=== PATIENT | female | born 1960 | race Caucasian/White ===

== ENCOUNTER 2020-06-05 15:00 | Outpatient (CLI) | payer MEDICAID ==
[2020-06-05] MEDS ORDERED: ATOR20TA66 PO (15:58)
[2020-06-05] MEDS ORDERED: INSU100V11 SQ (15:58)
[2020-06-05] MEDS ORDERED: INSU100I31 SQ (15:58)
[2020-06-05] MEDS ORDERED: ALBU8.5H8 IH (15:58)
[2020-06-05] MEDS ORDERED: LISI-604 PO (15:59)
[2020-06-05 16:27] LABS: BASOPHILS % (AUTO) 0.3 % (0-1); EOSINOPHILS # (AUTO) 0.1 X10'3 (0-0.9); EOSINOPHILS % (AUTO) 0.8 % (0-6); LYMPHOCYTES # (AUTO) 3.2 X10'3 (1.1-4.8); LYMPHOCYTES % (AUTO) 30.7 % (21-51); MEAN CORPUSCULAR HEMOGLOBIN 28.7 PG (27.0-31.0); MEAN CORPUSCULAR HGB CONC 33.8 g/dL (33.0-36.5); MEAN CORPUSCULAR VOLUME 85.1 FL (78-98); MEAN PLATELET VOLUME 8.9 FL (7.4-10.4); MONOCYTES # (AUTO) 0.7 X10'3 (0-0.9); MONOCYTES % (AUTO) 6.4 % (2-12); NEUTROPHILS # (AUTO) 6.5 X10'3 (1.8-7.7); NEUTROPHILS % (AUTO) 61.8 % (42-75); PRE OP HEMATOCRIT 49.3 % (35.0-45.0); PRE OP HEMOGLOBIN 16.7 g/dL (12.0-16.0); PRE OP PLATELET COUNT 297 X10'3 (140-440); RED BLOOD COUNT 5.79 X10'6 (4.20-5.60); RED CELL DISTRIBUTION WIDTH 14.1 % (11.5-14.5)
[2020-06-05 16:35] LABS: ALBUMIN 3.4 G/DL (3.4-5.0); ALBUMIN/GLOBULIN RATIO 0.9 (1.1-1.5); ALKALINE PHOSPHATASE 175 IU/L (46-116); BLOOD UREA NITROGEN 19 MG/DL (7-18); BUN/CREATININE RATIO 19.2 (6.6-38.0); CALCIUM 9.7 MG/DL (8.5-10.1); CHLORIDE 100 MMOL/L (99-107); CREATININE 0.99 MG/DL (0.40-0.90); PRE OP ALT 35 U/L (30-65); PRE OP ANION GAP 8 (8-16); PRE OP AST 12 U/L (10-37); PRE OP BILIRUB, TOTAL 0.2 MG/DL (0.0-1.0); PRE OP POTASSIUM 4.6 MMOL/L (3.4-5.1); PRE OP SODIUM 136 MMOL/L (135-145); TOTAL CARBON DIOXIDE 27.6 MMOL/L (24-32); TOTAL PROTEIN 7.4 G/DL (6.4-8.2); eGFR 57 ML/MIN
[2020-06-05 16:39] LABS: PRE OP GLUCOSE 502 MG/DL (70-104)
== END 2020-06-05 23:59 | disposition home or self-care (01) ==
LOC: PRE-OP 15:00 → EDSTATUS 06-12 09:15
PROVIDERS: ATTEND Surgery
DX: Z01.812 Encounter for preprocedural laboratory examination (principal); Z20.828 Contact with and (suspected) exposure to other viral communicable diseases
CPT/HCPCS: 36415; 80053; 85025; 87635; 93005

== ENCOUNTER 2020-10-09 05:06 | Observation (INO) | payer MEDICAID ==
[2020-10-02 15:31] LABS: BASOPHILS # (AUTO) 0.1 X10'3 (0-0.2); BASOPHILS % (AUTO) 0.8 % (0-1); EOSINOPHILS # (AUTO) 0.1 X10'3 (0-0.9); EOSINOPHILS % (AUTO) 0.9 % (0-6); LYMPHOCYTES # (AUTO) 3.2 X10'3 (1.1-4.8); LYMPHOCYTES % (AUTO) 29.1 % (21-51); MEAN CORPUSCULAR HEMOGLOBIN 28.7 PG (27.0-31.0); MEAN CORPUSCULAR HGB CONC 33.8 g/dL (33.0-36.5); MEAN CORPUSCULAR VOLUME 84.9 FL (78-98); MEAN PLATELET VOLUME 8.7 FL (7.4-10.4); MONOCYTES # (AUTO) 0.7 X10'3 (0-0.9); MONOCYTES % (AUTO) 6.4 % (2-12); NEUTROPHILS # (AUTO) 6.8 X10'3 (1.8-7.7); NEUTROPHILS % (AUTO) 62.8 % (42-75); PRE OP HEMATOCRIT 49.2 % (35.0-45.0); PRE OP HEMOGLOBIN 16.6 g/dL (12.0-16.0); PRE OP PLATELET COUNT 317 X10'3 (140-440); RED CELL DISTRIBUTION WIDTH 14.7 % (11.5-14.5)
[2020-10-02 15:45] LABS: ALBUMIN 3.4 G/DL (3.4-5.0); ALBUMIN/GLOBULIN RATIO 0.9 (1.1-1.5); ALKALINE PHOSPHATASE 154 IU/L (46-116); BLOOD UREA NITROGEN 26 MG/DL (7-18); BUN/CREATININE RATIO 30.6 (6.6-38.0); CALCIUM 9.7 MG/DL (8.5-10.1); CHLORIDE 105 MMOL/L (99-107); CREATININE 0.85 MG/DL (0.40-0.90); PRE OP ALT 39 U/L (30-65); PRE OP ANION GAP 9 (8-16); PRE OP AST 18 U/L (10-37); PRE OP BILIRUB, TOTAL 0.1 MG/DL (0.0-1.0); PRE OP POTASSIUM 4.5 MMOL/L (3.4-5.1); PRE OP SODIUM 140 MMOL/L (135-145); TOTAL CARBON DIOXIDE 26.1 MMOL/L (24-32); TOTAL PROTEIN 7.4 G/DL (6.4-8.2); eGFR 68 ML/MIN
[2020-10-02 15:55] LABS: PRE OP GLUCOSE 283 MG/DL (70-104)
[2020-10-02 16:08] LABS: HEMOGLOBIN A1C 10.6 % (4.5-6.2)
[2020-10-09] VITALS (18 sets, daily range): BP systolic 133–181; BP diastolic 55–98
[~2020-10-09] VITALS: Ht 157.5 cm; Wt 115.4 kg
[~2020-10-09 05:06] MED LIST: ALBU8.5H8 IH; INSU100I31 SQ; INSU100V11 SQ; LISI-790 PO; ringers solution, lacted 1,000 ML IV SCH
[2020-10-09] MEDS ORDERED: clindamycin-Cleocin 900mg/D5W 50 ML IV ONE (05:30)
[2020-10-09] MEDS ORDERED: albuterol 2.5 MG/3 ML nebule NEB ONE (05:30)
[2020-10-09] MEDS ORDERED: famotidine 20mg tablet PO ONE (05:30)
[2020-10-09] MEDS ORDERED: LIDOcaine 1% (10mg/ml) 2ml vial ONE (06:05)
[2020-10-09] MEDS ORDERED: LIDOcaine 1% 30ml preserv. free vial ONE (06:49)
[2020-10-09] MEDS ORDERED: BUPIVAcaine/PF 2.5mg/ml (0.25%) 10ml vial ONE (06:50)
[2020-10-09] MEDS ORDERED: BUPIVAcaine/PF 2.5 mg/ml (0.25%) 30ml vial ONE (06:50)
[2020-10-09] MEDS ORDERED: BUPIVACAINE liposomal/PF 13.3 MG/ML vial IM ONE (06:51)
[2020-10-09] MEDS ORDERED: insulin regular, human 10 units/0.1 ml syringe IV ONE (07:00)
[2020-10-09] MEDS ORDERED: fentaNYL /PF 50mcg/ml 5ml ampule ONE (07:34)
[2020-10-09] MEDS ORDERED: midazolam 1 mg/ML 2ml injection ONE (07:34)
[2020-10-09] MEDS ORDERED: propofol inj 20 ML IV ONE (07:35)
[2020-10-09] MEDS ORDERED: LIDOcaine 2% (20mg/ml) 5ml vial ONE (07:35)
[2020-10-09] MEDS ORDERED: ondansetron/PF 4mg/2ml inj ONE (07:57)
[2020-10-09] MEDS ORDERED: dexamethasone sod phosphate 4mg/ml inj. ONE (07:57)
[2020-10-09] MEDS ORDERED: meperidine/PF 25mg/ml syringe IV PRN ×3 (09:20)
[2020-10-09] MEDS ORDERED: morphine 4 MG/ML inj SYRINge IV PRN (09:20)
[2020-10-09] MEDS ORDERED: proCHLORperazine 10 MG/2 ml inj IV PRN (09:20)
[2020-10-09] MEDS ORDERED: ondansetron/PF 4mg/2ml inj IV PRN ×2 (09:20→11:05)
[2020-10-09] MEDS ORDERED: morphine 2 MG/ML inj. syringe IV PRN (09:20)
[2020-10-09] MEDS ORDERED: ringers solution, lacted 1,000 ML IV SCH (09:20)
[2020-10-09] MEDS ORDERED: meperidine/PF 25mg/ml syringe ONE (10:18)
[2020-10-09] MEDS ORDERED: dextrose 50%-water 50ml dispensing syringe IV PRN ×2 (11:05)
[2020-10-09] MEDS ORDERED: MESSAGE TO PHARMACY PO ONE (11:05)
[2020-10-09] MEDS ORDERED: oxyCODONE/APAP 5-325mg tablet PO PRN (11:05)
[2020-10-09] MEDS ORDERED: insulin Lispro (HumaLOG) vial - multi-dose SQ SCH (11:05)
[2020-10-09] MEDS ORDERED: dextrose ORAL solution 15 GM/59 ML bottle PO PRN ×2 (11:05)
[2020-10-09] MEDS ORDERED: glucagon, human recombinant 1mg kit SUBCUT PRN (11:05)
[2020-10-09] MEDS ORDERED: insulin regular, human 10 units/0.1 ml syringe SQ ONE (11:10)
[2020-10-09] MEDS ORDERED: albuterol 2.5 MG/3 ML nebule NEB PRN (11:15)
--- NOTE | 2020-10-09 11:48 | NUR ---
ADMITTED TO PACU FROM OR ACCOMPANIED BY ANESTHESIA. INTIAL PHYSICAL ASSESSMENT DONE AND RECORDED. REPORT RECEIVED FROM ANESTHESIA.
--- NOTE | 2020-10-09 11:53 | NUR ---
Patient in room [facility] 348B. I have received report from LORRAINE CHAVEZ and had the opportunity to ask questions and assume patient care.
--- NOTE | 2020-10-09 12:00 | NUR ---
PACU DISCHARGE CRITERIA MET, REPORT GIVEN TO FLOOR. DENIES PAIN OR DISCOMFORT, TRANSFERRED TO ROOM IN STABLE GOOD CONDITION. UNEVENTUL PACU STAY, GLUCOSE 260 REGULAR INSULIN 10 UNITS GIVEN PER ORDER, PAIN FREE DURING PACU STAY.
[2020-10-09] MEDS: oxyCODONE/APAP 10/325mg tablet PO PRN ×2 (15:44→19:59)
[2020-10-09] MEDS: Potassium Cl inj 20 MEQ in ringers solution, lacted 1,000 ML IV SCH ×2 (18:00→19:10)
--- NOTE | 2020-10-09 18:20 | NUR ---
Patient in room [facility] 348B. I have received report from LORRAINE Vega and had the opportunity to ask questions and assume patient care. Repositioned patient and released/reapplied abdominal binder.
--- NOTE | 2020-10-09 18:55 | NUR ---
unable to cover for blood sugar because insulin is not available in [facility]. Pharmacy notified. Awaiting medication
--- NOTE | 2020-10-09 19:03 | NUR ---
Problems reprioritized. Patient report given, questions answered & plan of care reviewed with LORRAINE WHITFIELD.
--- NOTE | 2020-10-09 19:05 | NUR ---
Patient refused insulin treatment for dinner.
[2020-10-09] MEDS: heparin, porcine 5000 units/ml vial SQ SCH (19:59)
[2020-10-09] MEDS ORDERED: insulin glargine (Lantus) pen - multi-dose SQ SCH (21:00)
[2020-10-10] VITALS: BP 115/66
[2020-10-10] MEDS: Potassium Cl inj 20 MEQ in ringers solution, lacted 1,000 ML IV SCH ×2 (02:13→11:20)
[2020-10-10 06:00] VITALS: BP 145/67
--- NOTE | 2020-10-10 06:30 | NUR ---
Patient in room [facility]. I have received report from Rosa PETERS and had the opportunity to ask questions and assume patient care.
--- NOTE | 2020-10-10 06:40 | NUR ---
Problems reprioritized. Patient report given, questions answered & plan of care reviewed with LORRAINE Bennett and LORRAINE Carr.
--- NOTE | 2020-10-10 06:53 | NUR ---
Patient in room [facility]. I have received report from Rosa PETERS and had the opportunity to ask questions and assume patient care.
[2020-10-10] MEDS: oxyCODONE/APAP 10/325mg tablet PO PRN (07:26)
[2020-10-10] MEDS: heparin, porcine 5000 units/ml vial SQ SCH (07:34)
[2020-10-10] MEDS ORDERED: lisinopril 5mg tablet PO SCH (08:00)
--- NOTE | 2020-10-10 10:09 | NUR ---
Patient refused breakfast tray.Educated the patient on the importance of an adequate nutritional intake. She still refused.
--- NOTE | 2020-10-10 10:45 | NUR ---
Pt ambulated stand by assist with a FWW 75 ft.
[2020-10-10 10:46] VITALS: BP 140/81
--- NOTE | 2020-10-10 11:00 | NUR ---
Topete was removed today at 1100. Immediately following removal the patient voided 200mls of urine.
--- NOTE | 2020-10-10 11:33 | NUR ---
called Dr Park and left a message regarding Pt's DC orders. Pt wants to be DC early because she has to go home all the way to [place] and worries about driving in the snow. Pt got her Topete DC'ed and had already urinated and had a small BM. Pt ambulated 75ft with FWW and a person stand by. Pt will needs pain meds and DC orders.
--- NOTE | 2020-10-10 13:44 | NUR ---
Patient was discharged at 1255. Iv removed and canula intact. She was educated on follow up instructions and diabetes. Patient had a band for belonging in the safe. She stated that she did not have anything in the safe, that she already retrieved her belongs. She was called about after discharge and she again stated that she had all of her belongings.
--- NOTE | 2020-10-11 14:46 | NUR ---
CASE MANAGEMENT DISCHARGE FOLLOW UP: Spoke with pt via telephone. Reports that she is doing well, ambulating often, states pain level is tolerable at 7/10 at surgical site with pain medication; denies CP, SOB, bleeding, fever, drainage, odor, redness, swelling. She states that she does have decreased appetite, was only able to eat one egg this morning but was unable to eat the toast, states that she is not worried about it. Verbalizes understanding of s/sx requiring further evaluation/emergent assistance. No new medications. Verbalizes compliance with MD discharge instructions, states will not lift anything over 10 lbs. States that her brother is helping her as needed. Verbalizes understanding of the importance in making/keeping follow-up appointments, will call to set up appointment with Dr Park tomorrow. States no further questions/concerns at this time.
== END 2020-10-10 12:50 | disposition home or self-care (01) ==
LOC: PAS 05:06 → SUR 3N 11:03
PROVIDERS: ADMIT Surgery; ATTEND Surgery
DX: K43.0 Incisional hernia with obstruction, without gangrene (principal); Z20.822 Contact with and (suspected) exposure to COVID-19; E11.65 Type 2 diabetes mellitus with hyperglycemia; I10 Essential (primary) hypertension; J45.909 Unspecified asthma, uncomplicated; E66.01 Morbid (severe) obesity due to excess calories; F17.210 Nicotine dependence, cigarettes, uncomplicated; Z98.1 Arthrodesis status; Z90.710 Acquired absence of both cervix and uterus; Z88.0 Allergy status to penicillin; Z68.42 Body mass index [BMI] 45.0-49.9, adult
CPT/HCPCS: 36415; 49655; 80053; 82948; 83036; 85025; 87635; 94640; 96361; 96372; 96374; 96375; C1713; C1758; C1781; C9290; G0378; J1100; J1815; J2001; J2175; J2250; J2405; J2704; J3010; J3480; J3490; J7120; S2900; A4215; A4618

== ENCOUNTER → 2021-04-26 | Outpatient (CLI) | payer MEDICAID ==
[~2021-04-26] MED LIST changes: +ALBU8.5H17 IH; -ALBU8.5H8 IH; +APIX5TAB3 PO; -ringers solution, lacted 1,000 ML IV SCH
[2021-04-26 10:09] LABS: BASOPHILS # (AUTO) 0.1 X10'3 (0-0.2); BASOPHILS % (AUTO) 0.7 % (0-1); EOSINOPHILS # (AUTO) 0.1 X10'3 (0-0.9); EOSINOPHILS % (AUTO) 0.6 % (0-6); LYMPHOCYTES # (AUTO) 2.5 X10'3 (1.1-4.8); LYMPHOCYTES % (AUTO) 27.2 % (21-51); MEAN CORPUSCULAR HEMOGLOBIN 27.8 PG (27.0-31.0); MEAN CORPUSCULAR HGB CONC 33.7 g/dL (33.0-36.5); MEAN CORPUSCULAR VOLUME 82.5 FL (78-98); MEAN PLATELET VOLUME 8.4 FL (7.4-10.4); MONOCYTES # (AUTO) 0.6 X10'3 (0-0.9); MONOCYTES % (AUTO) 6.5 % (2-12); NEUTROPHILS # (AUTO) 5.9 X10'3 (1.8-7.7); PRE OP HEMATOCRIT 47.9 % (35.0-45.0); PRE OP HEMOGLOBIN 16.1 g/dL (12.0-16.0); PRE OP PLATELET COUNT 322 X10'3 (140-440); RED BLOOD COUNT 5.81 X10'6 (4.20-5.60)
[2021-04-26 10:21] LABS: ALBUMIN 3.2 G/DL (3.4-5.0); ALBUMIN/GLOBULIN RATIO 0.8 (1.1-1.5); ALKALINE PHOSPHATASE 144 IU/L (46-116); CALCIUM 9.3 MG/DL (8.5-10.1); CHLORIDE 101 MMOL/L (99-107); CREATININE 0.97 MG/DL (0.40-0.90); PRE OP ALT 30 U/L (30-65); PRE OP ANION GAP 11 (8-16); PRE OP AST 13 U/L (10-37); PRE OP BILIRUB, TOTAL 0.4 MG/DL (0.0-1.0); PRE OP POTASSIUM 4.5 MMOL/L (3.4-5.1); PRE OP SODIUM 137 MMOL/L (135-145); TOTAL CARBON DIOXIDE 25.1 MMOL/L (24-32); TOTAL PROTEIN 7.1 G/DL (6.4-8.2); eGFR 59 ML/MIN
[2021-04-26 10:24] LABS: PRE OP GLUCOSE 447 MG/DL (70-104)
[2021-04-26 10:50] LABS: BLOOD UREA NITROGEN 14 MG/DL (7-18); BUN/CREATININE RATIO 14.4 (6.6-38.0)
== END | disposition home or self-care (01) ==
LOC: PRE-OP 14:03 → EDSTATUS 05-02 10:30
PROVIDERS: ATTEND Surgery
DX: Z01.818 Encounter for other preprocedural examination (principal); K40.90 Unilateral inguinal hernia, without obstruction or gangrene, not specified as recurrent; Z20.822 Contact with and (suspected) exposure to COVID-19
CPT/HCPCS: 36415; 80053; 83036; 85025; 93005; U0003; U0005